=== PATIENT | female | born 1945 | race Caucasian/White ===

== ENCOUNTER 2017-12-26 06:04 | Inpatient (IN) | payer MEDICARE, MEDICAID ==
[2017-12-20 10:30] LABS: BASOPHILS % (AUTO) 0.5 % (0-1); EOSINOPHILS # (AUTO) 0.1 X10'3 (0-0.9); EOSINOPHILS % (AUTO) 2.2 % (0-6); LYMPHOCYTES # (AUTO) 1.2 X10'3 (1.1-4.8); LYMPHOCYTES % (AUTO) 18.2 % (21-51); MEAN CORPUSCULAR HEMOGLOBIN 32.4 PG (27.0-31.0); MEAN CORPUSCULAR HGB CONC 34.7 % (33.0-36.5); MEAN CORPUSCULAR VOLUME 93.4 FL (78-98); MEAN PLATELET VOLUME 8.7 FL (7.4-10.4); MONOCYTES # (AUTO) 0.5 X10'3 (0-0.9); MONOCYTES % (AUTO) 7.2 % (2-12); NEUTROPHILS # (AUTO) 4.6 X10'3 (1.8-7.7); NEUTROPHILS % (AUTO) 71.9 % (42-75); PRE OP HEMATOCRIT 40.8 % (35.0-45.0); PRE OP HEMOGLOBIN 14.2 g/dL (12.0-16.0); PRE OP PLATELET COUNT 161 X10'3 (140-440); RED BLOOD COUNT 4.37 X10'6 (4.20-5.60)
[2017-12-20 10:45] LABS: ALBUMIN 3.5 G/DL (3.4-5.0); ALKALINE PHOSPHATASE 88 IU/L (46-116); BLOOD UREA NITROGEN 17 MG/DL (7-18); BUN/CREATININE RATIO 18.7 (6.6-38.0); CALCIUM 9.4 MG/DL (8.5-10.1); CHLORIDE 104 MMOL/L (99-107); CREATININE 0.91 MG/DL (0.40-0.90); PRE OP ALT 33 U/L (30-65); PRE OP ANION GAP 6 (8-16); PRE OP AST 23 U/L (10-37); PRE OP BILIRUB, TOTAL 0.3 MG/DL (0.0-1.0); PRE OP GLUCOSE 107 MG/DL (70-104); PRE OP POTASSIUM 3.7 MMOL/L (3.4-5.1); PRE OP SODIUM 141 MMOL/L (135-145); TOTAL CARBON DIOXIDE 31.1 MMOL/L (24-32); eGFR 60 ML/MIN
[2017-12-26] VITALS (27 sets, daily range): BP systolic 76–113; BP diastolic 31–63
[~2017-12-26] VITALS: Ht 162.6 cm; Wt 74.0 kg
[~2017-12-26 06:04] MED LIST: ATOR40TA PO; DULO-31 PO; HYDR25TA4 PO; HYDR50CA PO; LOSA100T15 PO; OMEP-84 PO; SUMA50TA17 PO; TRAZ-218 PO; VANCOMYCIN INJ 1000 MG in NORMAL SALINE 250ml IV.SOLN IV ONE; ZOLP10TA5 PO; cefazolin/dext.iso 2gm/100 ML IV ONE; famotidine 20mg tablet PO ONE; ringers solution, lacted 1,000 ML IV SCH; tranexamic acid inj. 700 MG in normal saline 100ml IV soln 93 ML IV ONE
[2017-12-26] MEDS ORDERED: tranexamic acid inj. 700 MG in normal saline 100ml IV soln 93 ML IV ONE (06:30)
[2017-12-26] MEDS ORDERED: LIDOcaine 1% (10mg/ml) 2ml vial ONE (06:45)
[2017-12-26] MEDS ORDERED: ketorolac trometh. 30mg/ml inj. ONE (07:43)
[2017-12-26] MEDS ORDERED: vancomycin 1,000mg inj ONE (07:43)
[2017-12-26] MEDS ORDERED: ROPIVAcaine 0.5% (5mg/ml) 30ml vial ONE ×2 (07:44→11:27)
[2017-12-26] MEDS ORDERED: MIDAZolam 1mg/ml 10ml vial ONE (08:57)
[2017-12-26] MEDS ORDERED: morphine /PF 1mg/ml 10ml inj. ONE (08:58)
[2017-12-26] MEDS ORDERED: fentaNYL/PF 50MCG/1 ML 2ML syringe ONE (08:58)
[2017-12-26] MEDS ORDERED: ePHEDrine 50MG/ML INJ. ONE (09:37)
[2017-12-26] MEDS ORDERED: ringers solution, lacted 1,000 ML IV SCH (11:09)
[2017-12-26] MEDS ORDERED: naloxone 2mg/2ml inj 1.5 MG in normal saline 500ml IV soln 500 ML IV PRN (11:10)
[2017-12-26] MEDS ORDERED: proCHLORperazine 10 MG/2 ml inj IV PRN (11:10)
[2017-12-26] MEDS ORDERED: meperidine/PF 25mg/ml syringe IV PRN ×3 (11:10)
[2017-12-26] MEDS ORDERED: morphine 4 MG/ML inj SYRINge IV PRN ×2 (11:10)
[2017-12-26] MEDS ORDERED: diphenhydrAMINE 50 mg/ml inj IV PRN (11:10)
[2017-12-26] MEDS ORDERED: ondansetron/PF 4mg/2ml inj IV PRN (11:10)
[2017-12-26] MEDS ORDERED: SUMAtriptan 25 MG tablet PO PRN (11:50)
[2017-12-26] MEDS ORDERED: magnesium hydroxide 30ml (MOM) UD suspension PO PRN (11:50)
[2017-12-26] MEDS ORDERED: diphenhydrAMINE 25mg capsule PO PRN ×2 (11:50)
[2017-12-26] MEDS ORDERED: HYDROmorphone 1 mg/ml syringe IV PRN ×2 (11:50)
[2017-12-26] MEDS ORDERED: acetaminophen 325mg tablet PO PRN (11:50)
[2017-12-26] MEDS ORDERED: bisacodyl 10mg suppository rectal RC PRN (11:50)
[2017-12-26] MEDS: ondansetron/PF 4mg/2ml inj IV PRN (15:49)
[2017-12-26] MEDS ORDERED: tranexamic acid inj. 700 MG in normal saline 100ml IV soln 100 ML IV ONE (16:00)
[2017-12-26] MEDS: acetaminophen 325mg tablet PO SCH ×2 (17:17→20:46)
[2017-12-26] MEDS: gabapentin 300mg capsule PO SCH ×2 (17:18→20:46)
[2017-12-26] MEDS: hydrOXYzine 25 MG tablet PO SCH ×2 (17:18→20:44)
[2017-12-26] MEDS: ketorolac tromethamine 15mg/ml inj. IV SCH ×2 (17:28→20:45)
[2017-12-26] MEDS: potassium cl 20mEq in 1/2 NS 1,000 ML IV SCH ×2 (18:50→21:13)
[2017-12-26] MEDS: ceFAZolin 1GM/D5W- ADD-VANTAGE 50 ML IV SCH (18:50)
[2017-12-26] MEDS ORDERED: vancomycin/NS 1 GM ADD-VANTAGE 250 ML IV SCH (20:00)
[2017-12-26] MEDS: sennosides 8.6mg tablet PO SCH (20:45)
[2017-12-26] MEDS: traZODone 50mg tablet PO SCH (20:46)
[2017-12-26] MEDS: atorvastatin 20mg tablet PO SCH (20:46)
[2017-12-26] MEDS: zolpidem 5mg tablet PO PRN (20:52)
[2017-12-27] MEDS: ketorolac tromethamine 15mg/ml inj. IV SCH ×2 (01:34→08:14)
[2017-12-27] MEDS: ceFAZolin 1GM/D5W- ADD-VANTAGE 50 ML IV SCH (01:34)
[2017-12-27] MEDS: acetaminophen 325mg tablet PO SCH ×4 (01:34→20:27)
[2017-12-27 05:00] VITALS: BP 97/49
[2017-12-27] MEDS: oxyCODONE IR 5mg (immed. release) tablet PO PRN ×2 (05:17→19:16)
[2017-12-27 06:23] LABS: BASOPHILS % (AUTO) 0.4 % (0-1); EOSINOPHILS % (AUTO) 0 % (0-6); HEMATOCRIT 33.2 % (35.0-45.0); LYMPHOCYTES # (AUTO) 0.7 X10'3 (1.1-4.8); LYMPHOCYTES % (AUTO) 6.9 % (21-51); MEAN CORPUSCULAR HEMOGLOBIN 31.4 PG (27.0-31.0); MEAN CORPUSCULAR HGB CONC 33.1 % (33.0-36.5); MEAN CORPUSCULAR VOLUME 94.9 FL (78-98); MEAN PLATELET VOLUME 9.5 FL (7.4-10.4); MONOCYTES # (AUTO) 0.7 X10'3 (0-0.9); MONOCYTES % (AUTO) 6.7 % (2-12); NEUTROPHILS # (AUTO) 9.2 X10'3 (1.8-7.7); PLATELET COUNT 120 X10'3 (140-440); RED CELL DISTRIBUTION WIDTH 14.6 % (11.5-14.5); WHITE BLOOD COUNT 10.7 X10'3 (4.5-11.0)
[2017-12-27 06:29] LABS: ANION GAP 8 (8-16); CHLORIDE 106 MMOL/L (99-107); POTASSIUM 4.3 MMOL/L (3.5-5.1); SODIUM 141 MMOL/L (135-145); TOTAL CARBON DIOXIDE 26.7 MMOL/L (24-32)
[2017-12-27] MEDS ORDERED: scopolamine 1.5mg patch.TD72 TD ONE (06:40)
[2017-12-27] MEDS: hydrOXYzine 25 MG tablet PO SCH ×4 (08:00→20:22)
[2017-12-27] MEDS: losartan 50mg tablet PO SCH (08:00)
[2017-12-27] MEDS: HYDROchlorothiazide 25mg tablet PO SCH (08:00)
[2017-12-27] MEDS: potassium cl 20mEq in 1/2 NS 1,000 ML IV SCH ×3 (08:04→16:23)
[2017-12-27] MEDS: duloxetine 30mg CAPSULE.DR PO SCH (08:09)
[2017-12-27] MEDS: gabapentin 300mg capsule PO SCH ×3 (08:10→20:27)
[2017-12-27] MEDS: pantoprazole 40mg Tablet.DR PO SCH (08:10)
[2017-12-27] MEDS: aspirin 325mg tablet PO SCH (08:13)
[2017-12-27 08:28] VITALS: BP 87/44
[2017-12-27 10:00] VITALS: BP 82/42
[2017-12-27] MEDS: ondansetron/PF 4mg/2ml inj IV PRN ×2 (11:11→19:15)
[2017-12-27 14:00] VITALS: BP 88/34
[2017-12-27 18:00] VITALS: BP 99/42
[2017-12-27] MEDS: celeCOXIB 100mg capsule PO SCH (20:26)
[2017-12-27] MEDS: atorvastatin 20mg tablet PO SCH (20:27)
[2017-12-27] MEDS: sennosides 8.6mg tablet PO SCH (20:28)
[2017-12-27] MEDS: traZODone 50mg tablet PO SCH (20:28)
[2017-12-27] MEDS: zolpidem 5mg tablet PO PRN (20:31)
[2017-12-27 22:00] VITALS: BP 104/44
[2017-12-28] MEDS: acetaminophen 325mg tablet PO SCH ×2 (02:00→08:17)
[2017-12-28] MEDS: potassium cl 20mEq in 1/2 NS 1,000 ML IV SCH (03:46)
[2017-12-28] MEDS: oxyCODONE IR 5mg (immed. release) tablet PO PRN ×4 (04:04→21:30)
[2017-12-28] MEDS ORDERED: WALKERFR (05:56)
[2017-12-28] MEDS ORDERED: ASPI-1 PO (05:56)
[2017-12-28 06:00] VITALS: BP 92/44
[2017-12-28] MEDS: hydrOXYzine 25 MG tablet PO SCH ×4 (08:00→20:54)
[2017-12-28 08:06] LABS: HEMATOCRIT 29.4 % (35.0-45.0); HEMOGLOBIN 10.3 g/dl (12.0-16.0); MEAN CORPUSCULAR HEMOGLOBIN 33.4 PG (27.0-31.0); MEAN CORPUSCULAR HGB CONC 35.1 % (33.0-36.5); MEAN CORPUSCULAR VOLUME 95.2 FL (78-98); PLATELET COUNT 102 X10'3 (140-440); RED BLOOD COUNT 3.09 X10'6 (4.20-5.60); RED CELL DISTRIBUTION WIDTH 13.2 % (11.5-14.5); WHITE BLOOD COUNT 7.2 X10'3 (4.5-11.0)
[2017-12-28 08:07] LABS: BASOPHILS % (AUTO) 0.5 % (0-1); EOSINOPHILS # (AUTO) 0.2 X10'3 (0-0.9); EOSINOPHILS % (AUTO) 2.2 % (0-6); LYMPHOCYTES # (AUTO) 1.6 X10'3 (1.1-4.8); LYMPHOCYTES % (AUTO) 21.7 % (21-51); MONOCYTES # (AUTO) 0.7 X10'3 (0-0.9); MONOCYTES % (AUTO) 9.4 % (2-12); NEUTROPHILS # (AUTO) 4.7 X10'3 (1.8-7.7); NEUTROPHILS % (AUTO) 66.2 % (42-75)
[2017-12-28] MEDS: celeCOXIB 100mg capsule PO SCH ×2 (08:13→20:49)
[2017-12-28] MEDS: losartan 50mg tablet PO SCH (08:14)
[2017-12-28] MEDS: duloxetine 30mg CAPSULE.DR PO SCH (08:14)
[2017-12-28] MEDS: HYDROchlorothiazide 25mg tablet PO SCH (08:15)
[2017-12-28] MEDS: gabapentin 300mg capsule PO SCH ×3 (08:15→20:49)
[2017-12-28] MEDS: pantoprazole 40mg Tablet.DR PO SCH (08:15)
[2017-12-28] MEDS: aspirin 325mg tablet PO SCH (08:17)
[2017-12-28 08:42] VITALS: BP 114/52
[2017-12-28] MEDS ORDERED: normal saline 500ml IV soln 1,000 ML IV ONE (09:25)
[2017-12-28 10:00] VITALS: BP 88/41
[2017-12-28 11:21] VITALS: BP 95/36
[2017-12-28 18:00] VITALS: BP 93/45
[2017-12-28] MEDS: atorvastatin 20mg tablet PO SCH (20:49)
[2017-12-28] MEDS: sennosides 8.6mg tablet PO SCH (20:49)
[2017-12-28] MEDS: traZODone 50mg tablet PO SCH (20:49)
[2017-12-28 22:00] VITALS: BP 98/45
[2017-12-29] MEDS: oxyCODONE IR 5mg (immed. release) tablet PO PRN ×3 (01:39→17:54)
[2017-12-29 06:00] VITALS: BP 117/52
[2017-12-29] MEDS: ondansetron/PF 4mg/2ml inj IV PRN (07:19)
[2017-12-29 07:27] LABS: BASOPHILS # (AUTO) 0.1 X10'3 (0-0.2); BASOPHILS % (AUTO) 0.8 % (0-1); EOSINOPHILS # (AUTO) 0.2 X10'3 (0-0.9); EOSINOPHILS % (AUTO) 2.1 % (0-6); HEMATOCRIT 30.8 % (35.0-45.0); HEMOGLOBIN 10.6 g/dl (12.0-16.0); LYMPHOCYTES # (AUTO) 1.8 X10'3 (1.1-4.8); LYMPHOCYTES % (AUTO) 24.3 % (21-51); MEAN CORPUSCULAR HEMOGLOBIN 32.5 PG (27.0-31.0); MEAN CORPUSCULAR HGB CONC 34.6 % (33.0-36.5); MEAN CORPUSCULAR VOLUME 93.9 FL (78-98); MEAN PLATELET VOLUME 9.9 FL (7.4-10.4); MONOCYTES # (AUTO) 0.7 X10'3 (0-0.9); MONOCYTES % (AUTO) 9.8 % (2-12); NEUTROPHILS # (AUTO) 4.6 X10'3 (1.8-7.7); PLATELET COUNT 124 X10'3 (140-440); RED BLOOD COUNT 3.28 X10'6 (4.20-5.60); RED CELL DISTRIBUTION WIDTH 13.3 % (11.5-14.5); WHITE BLOOD COUNT 7.4 X10'3 (4.5-11.0)
[2017-12-29] MEDS: celeCOXIB 100mg capsule PO SCH ×2 (07:42→20:02)
[2017-12-29] MEDS: duloxetine 30mg CAPSULE.DR PO SCH (07:42)
[2017-12-29] MEDS: aspirin 325mg tablet PO SCH (07:43)
[2017-12-29] MEDS: pantoprazole 40mg Tablet.DR PO SCH (07:43)
[2017-12-29] MEDS: gabapentin 300mg capsule PO SCH ×3 (07:43→20:02)
[2017-12-29] MEDS: hydrOXYzine 25 MG tablet PO SCH ×4 (07:51→20:03)
[2017-12-29] MEDS: losartan 50mg tablet PO SCH (07:52)
[2017-12-29] MEDS: HYDROchlorothiazide 25mg tablet PO SCH (07:52)
[2017-12-29 10:00] VITALS: BP 116/47
[2017-12-29] MEDS ORDERED: scopolamine 1.5mg patch.TD72 TD ONE (11:35)
[2017-12-29] MEDS: acetaminophen 325mg tablet PO PRN ×2 (12:03→23:26)
[2017-12-29 18:00] VITALS: BP 104/54
[2017-12-29] MEDS: traZODone 50mg tablet PO SCH (20:02)
[2017-12-29] MEDS: sennosides 8.6mg tablet PO SCH (20:02)
[2017-12-29] MEDS: atorvastatin 20mg tablet PO SCH (20:02)
[2017-12-29 22:00] VITALS: BP 105/59
[2017-12-30] MEDS: acetaminophen 325mg tablet PO PRN (05:30)
[2017-12-30 07:02] VITALS: BP 100/45
[2017-12-30] MEDS: gabapentin 300mg capsule PO SCH ×2 (07:54→15:02)
[2017-12-30] MEDS: duloxetine 30mg CAPSULE.DR PO SCH (07:54)
[2017-12-30] MEDS: pantoprazole 40mg Tablet.DR PO SCH (07:54)
[2017-12-30] MEDS: hydrOXYzine 25 MG tablet PO SCH ×3 (07:54→16:43)
[2017-12-30] MEDS: aspirin 325mg tablet PO SCH (07:54)
[2017-12-30] MEDS: celeCOXIB 100mg capsule PO SCH (07:54)
[2017-12-30] MEDS: HYDROchlorothiazide 25mg tablet PO SCH (08:00)
[2017-12-30] MEDS: losartan 50mg tablet PO SCH (08:00)
[2017-12-30 10:00] VITALS: BP 118/55
[2017-12-30] MEDS: oxyCODONE IR 5mg (immed. release) tablet PO PRN (11:25)
[2017-12-30 18:00] VITALS: BP 115/55
[2018-01-03] MEDS ORDERED: lactose-reduced food (Ensure High Protein) 237ml bottle PO SCH (12:12)
== END 2017-12-30 19:20 | disposition home health service (06) | DRG 470 ==
LOC: PAS IN 06:04 → EDSTATUS 07:30 → ORTHO 4S 14:35
PROVIDERS: ADMIT Orthopaedic Surgery; ATTEND Orthopaedic Surgery
PROC: 3E0T3BZ Introduction of Anesthetic Agent into Peripheral Nerves and Plexi, Percutaneous Approach (ICD-10-PCS; 2017-12-26)
PROC: 8E0YXBZ Computer Assisted Procedure of Lower Extremity (ICD-10-PCS; 2017-12-26)
PROC: 8E0Y0CZ Robotic Assisted Procedure of Lower Extremity, Open Approach (ICD-10-PCS; 2017-12-26)
PROC: 0SRD0J9 Replacement of Left Knee Joint with Synthetic Substitute, Cemented, Open Approach (ICD-10-PCS; principal; 2017-12-26 09:12)
DX: M17.12 Unilateral primary osteoarthritis, left knee (principal); D62 Acute posthemorrhagic anemia; K21.9 Gastro-esophageal reflux disease without esophagitis; E78.5 Hyperlipidemia, unspecified; F41.9 Anxiety disorder, unspecified; I10 Essential (primary) hypertension; F32.9 Major depressive disorder, single episode, unspecified; G43.909 Migraine, unspecified, not intractable, without status migrainosus; I95.9 Hypotension, unspecified; E66.9 Obesity, unspecified; M25.762 Osteophyte, left knee; M21.162 Varus deformity, not elsewhere classified, left knee; Z96.651 Presence of right artificial knee joint; Z96.1 Presence of intraocular lens; R11.0 Nausea; R42 Dizziness and giddiness; G89.29 Other chronic pain; E11.9 Type 2 diabetes mellitus without complications; Z91.040 Latex allergy status; Z91.048 Other nonmedicinal substance allergy status; Z91.041 Radiographic dye allergy status; Z79.899 Other long term (current) drug therapy; Z79.82 Long term (current) use of aspirin; Z68.28 Body mass index [BMI] 28.0-28.9, adult
CPT/HCPCS: 36415; 80051; 80053; 85025; 87070; 93005; 97110; 97116; 97162; 97530; 97535; A6455; A7000; C1713; C1758; C1776; J0690; J1885; J2250; J2274; J2405; J2795; J3010; J3370; J3490; J7030; J7120; Q0177

== ENCOUNTER 2018-01-05 11:10 | Inpatient (IN) | payer MEDICARE, MEDICAID ==
[~2018-01-05] VITALS: Ht 162.6 cm; Wt 72.0 kg
[~2018-01-05 11:10] MED LIST changes: +ASPI-1 PO; -VANCOMYCIN INJ 1000 MG in NORMAL SALINE 250ml IV.SOLN IV ONE; +WALKERFR; -cefazolin/dext.iso 2gm/100 ML IV ONE; -famotidine 20mg tablet PO ONE; -ringers solution, lacted 1,000 ML IV SCH; -tranexamic acid inj. 700 MG in normal saline 100ml IV soln 93 ML IV ONE
[2018-01-05] MEDS ORDERED: normal saline 1000ML IV soln IVB ONE (11:50)
[2018-01-05] MEDS ORDERED: ondansetron/PF 4mg/2ml inj IV ONE (11:50)
[2018-01-05 12:38] LABS: EOSINOPHILS % (AUTO) 0.1 % (0-6); HEMOGLOBIN 10.9 g/dl (12.0-16.0); LYMPHOCYTES # (AUTO) 0.5 X10'3 (1.1-4.8); MONOCYTES # (AUTO) 0.5 X10'3 (0-0.9); NEUTROPHILS # (AUTO) 9.6 X10'3 (1.8-7.7); RED BLOOD COUNT 3.37 X10'6 (4.20-5.60)
[2018-01-05 12:50] LABS: BASOPHILS # (AUTO) 0.2 X10'3 (0-0.2); BASOPHILS % (AUTO) 1.7 % (0-1); HEMATOCRIT 31.8 % (35.0-45.0); LYMPHOCYTES % (AUTO) 4.7 % (21-51); MEAN CORPUSCULAR HEMOGLOBIN 32.2 PG (27.0-31.0); MEAN CORPUSCULAR HGB CONC 34.2 % (33.0-36.5); MEAN CORPUSCULAR VOLUME 94.4 FL (78-98); MONOCYTES % (AUTO) 4.7 % (2-12); NEUTROPHILS % (AUTO) 88.8 % (42-75); PLATELET COUNT 208 X10'3 (140-440); RED CELL DISTRIBUTION WIDTH 13.1 % (11.5-14.5); WHITE BLOOD COUNT 10.8 X10'3 (4.5-11.0)
[2018-01-05 12:55] LABS: ALANINE AMINOTRANSFERASE 25 U/L (12-78); ALBUMIN 2.5 G/DL (3.4-5.0); ALBUMIN/GLOBULIN RATIO 0.8 (1.1-1.5); ALKALINE PHOSPHATASE 70 IU/L (46-116); ANION GAP 10 (8-16); ASPARTATE AMINO TRANSFERASE 26 U/L (10-37); BILIRUBIN,TOTAL 0.6 MG/DL (0.1-1.0); BLOOD UREA NITROGEN 11 MG/DL (7-18); BUN/CREATININE RATIO 11.1 (6.6-38.0); C-REACTIVE PROTEIN 2.08 MG/DL (0.0-0.5); CHLORIDE 106 MMOL/L (99-107); CREATININE 0.99 MG/DL (0.40-0.90); GLUCOSE 104 MG/DL (70-104); MAGNESIUM 1.8 MG/DL (1.5-2.4); POTASSIUM 3.5 MMOL/L (3.5-5.1); SODIUM 141 MMOL/L (135-145); TOTAL CARBON DIOXIDE 24.8 MMOL/L (24-32); TOTAL PROTEIN 5.8 G/DL (6.4-8.2); eGFR 55 ML/MIN
[2018-01-05 12:59] LABS: PARTIAL THROMBOPLASTIN TIME 25 SECONDS (22-32); PROTHROMBIN TIME 10.7 SECONDS (9.0-12.0)
[2018-01-05 13:22] LABS: CLARITY,URINE CLEAR (Clear); GLUCOSE, URINE NEGATIVE (Neg); KETONES,URINE >=80 mg/dl (Neg); LEUKOCYTE ESTERASE ,URINE NEGATIVE (Neg); NITRITES, URINE NEGATIVE (Neg); OCCULT BLOOD,URINE NEGATIVE (Neg); PROTEIN,URINE TRACE mg/dl (Neg)
[2018-01-05 13:29] LABS: COLOR,URINE DARK YELLOW (Yellow); UA COLLECTION TYPE FOLEY CATH
[2018-01-05 13:34] LABS: BACTERIA,URINE NONE SEEN /HPF (Neg); MUCUS STRANDS MANY /LPF (Neg); RBC,URINE NONE SEEN /HPF (0-2); SQUAMOUS EPITHELIAL CELL,UR FEW /LPF (FEW); WBC,URINE 0-4 /HPF (0-4)
[2018-01-05] MEDS ORDERED: ondansetron/PF 4mg/2ml inj IV PRN (17:45)
[2018-01-05] MEDS ORDERED: acetaminophen 325mg tablet PO PRN (17:45)
[2018-01-05] MEDS ORDERED: magnesium hydroxide 30ml (MOM) UD suspension PO PRN (17:45)
[2018-01-05] MEDS: dextrose 5%-1/2 normal saline 1,000 ML IV SCH (18:37)
[2018-01-05] MEDS ORDERED: SUMATRIPTAN SUCCINATE 50 MG PO PRN (19:05)
[2018-01-05] MEDS ORDERED: ZOLPIDEM TARTRATE 5 MG PO PRN (19:05)
[2018-01-05] MEDS ORDERED: HYDROXYZINE PAMOATE 50 MG PO PRN (19:05)
[2018-01-05 19:20] VITALS: BP 132/65
[2018-01-05] MEDS ORDERED: SUMAtriptan 25 MG tablet PO PRN (19:25)
[2018-01-05] MEDS ORDERED: hydrOXYzine 25 MG tablet PO PRN (19:25)
[2018-01-05] MEDS: mag hydrox/Alum hydrox/simeth 30ml oral suspension PO PRN (20:34)
[2018-01-05] MEDS ORDERED: non-formulary drug (Atorvastatin Calcium* (Lipitor*) 0.5 TABLET) PO SCH (21:00)
[2018-01-05] MEDS: atorvastatin 20mg tablet PO SCH (21:24)
[2018-01-05] MEDS: traZODone 50mg tablet PO SCH (21:24)
[2018-01-05] MEDS: zolpidem 5mg tablet PO PRN (21:26)
[2018-01-05 22:00] VITALS: BP 138/65
[2018-01-06] MEDS: mag hydrox/Alum hydrox/simeth 30ml oral suspension PO PRN (04:14)
[2018-01-06] MEDS: HYDROcodone/acetaminophen 5mg/325mg tablet PO PRN ×4 (04:15→17:23)
[2018-01-06 06:00] VITALS: BP 116/59
[2018-01-06 07:31] LABS: BASOPHILS % (AUTO) 0.6 % (0-1); EOSINOPHILS # (AUTO) 0.1 X10'3 (0-0.9); EOSINOPHILS % (AUTO) 1.8 % (0-6); HEMATOCRIT 27.9 % (35.0-45.0); HEMOGLOBIN 9.5 g/dl (12.0-16.0); LYMPHOCYTES # (AUTO) 1.1 X10'3 (1.1-4.8); LYMPHOCYTES % (AUTO) 13.6 % (21-51); MEAN CORPUSCULAR HEMOGLOBIN 32.3 PG (27.0-31.0); MEAN CORPUSCULAR HGB CONC 34.1 % (33.0-36.5); MEAN CORPUSCULAR VOLUME 94.6 FL (78-98); MEAN PLATELET VOLUME 7.7 FL (7.4-10.4); MONOCYTES # (AUTO) 0.6 X10'3 (0-0.9); MONOCYTES % (AUTO) 7.8 % (2-12); NEUTROPHILS % (AUTO) 76.2 % (42-75); PLATELET COUNT 199 X10'3 (140-440); RED BLOOD COUNT 2.95 X10'6 (4.20-5.60); RED CELL DISTRIBUTION WIDTH 13.3 % (11.5-14.5); WHITE BLOOD COUNT 7.8 X10'3 (4.5-11.0)
[2018-01-06 07:39] LABS: ALANINE AMINOTRANSFERASE 19 U/L (12-78); ALBUMIN/GLOBULIN RATIO 0.7 (1.1-1.5); ALKALINE PHOSPHATASE 61 IU/L (46-116); ANION GAP 7 (8-16); ASPARTATE AMINO TRANSFERASE 25 U/L (10-37); BILIRUBIN,TOTAL 0.4 MG/DL (0.1-1.0); BLOOD UREA NITROGEN 10 MG/DL (7-18); BUN/CREATININE RATIO 12.8 (6.6-38.0); CALCIUM 7.5 MG/DL (8.5-10.1); CHLORIDE 109 MMOL/L (99-107); CREATININE 0.78 MG/DL (0.40-0.90); GLUCOSE 105 MG/DL (70-104); POTASSIUM 3.4 MMOL/L (3.5-5.1); SODIUM 143 MMOL/L (135-145); TOTAL CARBON DIOXIDE 27.4 MMOL/L (24-32); TOTAL PROTEIN 4.9 G/DL (6.4-8.2); eGFR 72 ML/MIN
[2018-01-06] MEDS ORDERED: non-formulary drug (Omeprazole* (Prilosec*) 20 MG) PO SCH (08:00)
[2018-01-06] MEDS ORDERED: non-formulary drug (Losartan Potassium 1 TAB) PO SCH (08:00)
[2018-01-06] MEDS: pantoprazole 40mg Tablet.DR PO SCH (08:45)
[2018-01-06] MEDS: losartan 50mg tablet PO SCH (08:46)
[2018-01-06] MEDS: HYDROchlorothiazide 25mg tablet PO SCH (08:46)
[2018-01-06] MEDS: enoxaparin 40mg/0.4ml syringe SUBCUT SCH (08:47)
[2018-01-06 10:00] VITALS: BP 137/61
[2018-01-06] MEDS ORDERED: potassium Cl 20 mEq SR tablet PO PRN (10:35)
[2018-01-06] MEDS ORDERED: pneumococcal 23-VAL P-sac vacc 25 mcg/0.5ml vial IMVAC ONE (12:00)
[2018-01-06] MEDS: potassium Cl 20 mEq SR tablet PO PRN ×2 (13:27→20:13)
[2018-01-06] MEDS ORDERED: vancomycin 125mg/5ml ORAL solution 5ml UD bottle PO SCH ×2 (14:00)
[2018-01-06] MEDS: dextrose 5%-1/2 normal saline 1,000 ML IV SCH (14:47)
[2018-01-06 18:00] VITALS: BP 129/61
[2018-01-06] MEDS: zolpidem 5mg tablet PO PRN (20:12)
[2018-01-06] MEDS: traZODone 50mg tablet PO SCH (20:13)
[2018-01-06] MEDS: atorvastatin 20mg tablet PO SCH (20:13)
[2018-01-06 22:00] VITALS: BP 113/58
[2018-01-07] MEDS: HYDROcodone/acetaminophen 5mg/325mg tablet PO PRN ×3 (01:55→14:36)
[2018-01-07 06:36] LABS: BASOPHILS % (AUTO) 0 % (0-1); EOSINOPHILS # (AUTO) 0.1 X10'3 (0-0.9); EOSINOPHILS % (AUTO) 1.4 % (0-6); HEMATOCRIT 32.5 % (35.0-45.0); HEMOGLOBIN 10.8 g/dl (12.0-16.0); LYMPHOCYTES % (AUTO) 9.6 % (21-51); MEAN CORPUSCULAR HEMOGLOBIN 31.4 PG (27.0-31.0); MONOCYTES # (AUTO) 0.5 X10'3 (0-0.9); MONOCYTES % (AUTO) 5.2 % (2-12); NEUTROPHILS # (AUTO) 8.8 X10'3 (1.8-7.7); NEUTROPHILS % (AUTO) 83.8 % (42-75); PLATELET COUNT 240 X10'3 (140-440); RED BLOOD COUNT 3.42 X10'6 (4.20-5.60); RED CELL DISTRIBUTION WIDTH 14.2 % (11.5-14.5); WHITE BLOOD COUNT 10.6 X10'3 (4.5-11.0)
[2018-01-07] MEDS: pantoprazole 40mg Tablet.DR PO SCH (06:47)
[2018-01-07 06:54] LABS: ALANINE AMINOTRANSFERASE 19 U/L (12-78); ALBUMIN 2.2 G/DL (3.4-5.0); ALBUMIN/GLOBULIN RATIO 0.7 (1.1-1.5); ALKALINE PHOSPHATASE 68 IU/L (46-116); ANION GAP 5 (8-16); ASPARTATE AMINO TRANSFERASE 19 U/L (10-37); BILIRUBIN,TOTAL 0.5 MG/DL (0.1-1.0); BLOOD UREA NITROGEN 7 MG/DL (7-18); BUN/CREATININE RATIO 7.5 (6.6-38.0); CALCIUM 7.8 MG/DL (8.5-10.1); CHLORIDE 106 MMOL/L (99-107); CREATININE 0.93 MG/DL (0.40-0.90); GLUCOSE 119 MG/DL (70-104); POTASSIUM 3.5 MMOL/L (3.5-5.1); SODIUM 141 MMOL/L (135-145); TOTAL PROTEIN 5.4 G/DL (6.4-8.2); eGFR 59 ML/MIN
[2018-01-07 06:59] VITALS: BP 130/68
[2018-01-07] MEDS: losartan 50mg tablet PO SCH (07:29)
[2018-01-07] MEDS: HYDROchlorothiazide 25mg tablet PO SCH (07:29)
[2018-01-07] MEDS: enoxaparin 40mg/0.4ml syringe SUBCUT SCH (07:29)
[2018-01-07] MEDS: dextrose 5%-1/2 normal saline 1,000 ML IV SCH ×2 (12:04→18:37)
[2018-01-07 18:00] VITALS: BP 112/59
[2018-01-07] MEDS: atorvastatin 20mg tablet PO SCH (20:33)
[2018-01-07] MEDS: mag hydrox/Alum hydrox/simeth 30ml oral suspension PO PRN (20:33)
[2018-01-07] MEDS: zolpidem 5mg tablet PO PRN (20:33)
[2018-01-07] MEDS: traZODone 50mg tablet PO SCH (20:33)
[2018-01-07 22:00] VITALS: BP 128/54
[2018-01-08] MEDS: HYDROcodone/acetaminophen 5mg/325mg tablet PO PRN (01:48)
[2018-01-08 05:26] LABS: BASOPHILS % (AUTO) 0 % (0-1); EOSINOPHILS # (AUTO) 0.1 X10'3 (0-0.9); EOSINOPHILS % (AUTO) 1.1 % (0-6); HEMATOCRIT 32.4 % (35.0-45.0); HEMOGLOBIN 10.9 g/dl (12.0-16.0); LYMPHOCYTES # (AUTO) 0.9 X10'3 (1.1-4.8); LYMPHOCYTES % (AUTO) 7.1 % (21-51); MEAN CORPUSCULAR HEMOGLOBIN 31.6 PG (27.0-31.0); MEAN CORPUSCULAR HGB CONC 33.6 % (33.0-36.5); MEAN PLATELET VOLUME 7.6 FL (7.4-10.4); MONOCYTES # (AUTO) 0.7 X10'3 (0-0.9); MONOCYTES % (AUTO) 5.6 % (2-12); NEUTROPHILS # (AUTO) 10.7 X10'3 (1.8-7.7); NEUTROPHILS % (AUTO) 86.2 % (42-75); PLATELET COUNT 285 X10'3 (140-440); RED BLOOD COUNT 3.45 X10'6 (4.20-5.60); RED CELL DISTRIBUTION WIDTH 14.1 % (11.5-14.5); WHITE BLOOD COUNT 12.4 X10'3 (4.5-11.0)
[2018-01-08 05:46] LABS: ALANINE AMINOTRANSFERASE 15 U/L (12-78); ALBUMIN 2.3 G/DL (3.4-5.0); ALBUMIN/GLOBULIN RATIO 0.7 (1.1-1.5); ALKALINE PHOSPHATASE 77 IU/L (46-116); ANION GAP 3 (8-16); ASPARTATE AMINO TRANSFERASE 15 U/L (10-37); BILIRUBIN,TOTAL 0.6 MG/DL (0.1-1.0); BLOOD UREA NITROGEN 5 MG/DL (7-18); BUN/CREATININE RATIO 5.3 (6.6-38.0); CALCIUM 8.3 MG/DL (8.5-10.1); CHLORIDE 104 MMOL/L (99-107); CREATININE 0.95 MG/DL (0.40-0.90); GLUCOSE 110 MG/DL (70-104); POTASSIUM 3.4 MMOL/L (3.5-5.1); SODIUM 139 MMOL/L (135-145); TOTAL CARBON DIOXIDE 31.7 MMOL/L (24-32); TOTAL PROTEIN 5.8 G/DL (6.4-8.2); eGFR 58 ML/MIN
[2018-01-08 06:00] VITALS: BP 120/55
[2018-01-08] MEDS: pantoprazole 40mg Tablet.DR PO SCH (07:42)
[2018-01-08] MEDS: losartan 50mg tablet PO SCH (07:43)
[2018-01-08] MEDS: HYDROchlorothiazide 25mg tablet PO SCH (07:43)
[2018-01-08] MEDS: enoxaparin 40mg/0.4ml syringe SUBCUT SCH (07:44)
[2018-01-08 10:00] VITALS: BP 123/55
[2018-01-08 17:18] VITALS: BP 130/50
== END 2018-01-08 17:45 | DRG 391 ==
LOC: ER 11:11 → ED HOLD 17:42 → ORTHO 4S 19:20
PROVIDERS: ADMIT Internal Medicine; ATTEND Internal Medicine
PROC: 3E02340 Introduction of Influenza Vaccine into Muscle, Percutaneous Approach (ICD-10-PCS; principal; 2018-01-06)
PROC: 3E0234Z Introduction of Serum, Toxoid and Vaccine into Muscle, Percutaneous Approach (ICD-10-PCS; 2018-01-06)
DX: R19.7 Diarrhea, unspecified (principal); E43 Unspecified severe protein-calorie malnutrition; D62 Acute posthemorrhagic anemia; E11.9 Type 2 diabetes mellitus without complications; G89.18 Other acute postprocedural pain; M25.562 Pain in left knee; E78.00 Pure hypercholesterolemia, unspecified; E78.5 Hyperlipidemia, unspecified; I10 Essential (primary) hypertension; K21.9 Gastro-esophageal reflux disease without esophagitis; K59.00 Constipation, unspecified; Z23 Encounter for immunization; Z91.040 Latex allergy status; Z91.048 Other nonmedicinal substance allergy status; Z79.899 Other long term (current) drug therapy; Z86.73 Personal history of transient ischemic attack (TIA), and cerebral infarction without residual deficits; Z68.27 Body mass index [BMI] 27.0-27.9, adult
CPT/HCPCS: 36415; 71045; 73560; 80053; 81001; 82948; 83036; 83605; 83735; 84145; 85025; 85610; 85651; 85730; 86140; 87040; 87070; 90732; 93005; 93971; 96361; 96374; 97110; 97116; 97162; 97530; 99285; J1650; J2405

== ENCOUNTER 2018-05-06 05:18 | Emergency (ER) | payer MEDICARE, MEDICAID ==
[~2018-05-06] VITALS: Ht 162.6 cm; Wt 74.0 kg
[~2018-05-06 05:18] MED LIST changes: -ASPI-1 PO; -LOSA100T15 PO; +LOSA100T57 PO
[2018-05-06] MEDS ORDERED: acetaminophen 325mg tablet PO ONE (05:45)
[2018-05-06 06:31] VITALS: BP 152/67
[2018-05-06 07:10] LABS: BASOPHILS % (AUTO) 0.2 % (0-1); EOSINOPHILS # (AUTO) 0.2 X10'3 (0-0.9); EOSINOPHILS % (AUTO) 2.6 % (0-6); HEMATOCRIT 37.1 % (35.0-45.0); HEMOGLOBIN 12.5 g/dl (12.0-16.0); LYMPHOCYTES # (AUTO) 1.2 X10'3 (1.1-4.8); LYMPHOCYTES % (AUTO) 16.1 % (21-51); MEAN CORPUSCULAR HEMOGLOBIN 30.9 PG (27.0-31.0); MEAN CORPUSCULAR HGB CONC 33.8 g/dL (33.0-36.5); MEAN CORPUSCULAR VOLUME 91.5 FL (78-98); MEAN PLATELET VOLUME 7.8 FL (7.4-10.4); MONOCYTES # (AUTO) 0.5 X10'3 (0-0.9); MONOCYTES % (AUTO) 7.2 % (2-12); NEUTROPHILS # (AUTO) 5.6 X10'3 (1.8-7.7); NEUTROPHILS % (AUTO) 73.9 % (42-75); PLATELET COUNT 160 X10'3 (140-440); RED BLOOD COUNT 4.05 X10'6 (4.20-5.60); RED CELL DISTRIBUTION WIDTH 14.9 % (11.5-14.5); WHITE BLOOD COUNT 7.6 X10'3 (4.5-11.0)
[2018-05-06 07:25] LABS: ALANINE AMINOTRANSFERASE 20 U/L (12-78); ALBUMIN 3.1 G/DL (3.4-5.0); ALBUMIN/GLOBULIN RATIO 0.9 (1.1-1.5); ALKALINE PHOSPHATASE 87 IU/L (46-116); ANION GAP 11 (8-16); ASPARTATE AMINO TRANSFERASE 15 U/L (10-37); BILIRUBIN,TOTAL 0.4 MG/DL (0.1-1.0); BLOOD UREA NITROGEN 18 MG/DL (7-18); BUN/CREATININE RATIO 17.6 (6.6-38.0); CALCIUM 8.7 MG/DL (8.5-10.1); CHLORIDE 104 MMOL/L (99-107); CREATININE 1.02 MG/DL (0.40-0.90); GLUCOSE 120 MG/DL (70-104); POTASSIUM 3.8 MMOL/L (3.5-5.1); SODIUM 143 MMOL/L (135-145); TOTAL PROTEIN 6.4 G/DL (6.4-8.2); eGFR 53 ML/MIN
[2018-05-06 07:31] LABS: MAGNESIUM 1.6 MG/DL (1.5-2.4)
== END 2018-05-06 08:49 | disposition home or self-care (01) ==
LOC: ER 05:18
DX: S70.01XA Contusion of right hip, initial encounter (principal); I10 Essential (primary) hypertension; K21.9 Gastro-esophageal reflux disease without esophagitis; E11.9 Type 2 diabetes mellitus without complications; Z86.73 Personal history of transient ischemic attack (TIA), and cerebral infarction without residual deficits; Z90.89 Acquired absence of other organs; Z91.040 Latex allergy status; Z88.8 Allergy status to other drugs, medicaments and biological substances; Z79.899 Other long term (current) drug therapy; Z60.2 Problems related to living alone; W18.39XA Other fall on same level, initial encounter; Y93.89 Activity, other specified; Y92.89 Other specified places as the place of occurrence of the external cause; Y99.8 Other external cause status
CPT/HCPCS: 36415; 71045; 72170; 80053; 83735; 83880; 84484; 85025; 93005; 99284

== ENCOUNTER 2022-11-02 00:50 | Emergency (ER) | payer MEDICARE, MEDICAID ==
[~2022-11-02] VITALS: Ht 162.6 cm; Wt 91.0 kg
[~2022-11-02 00:50] MED LIST changes: -LOSA100T57 PO; +LOSA100T58 PO; -TRAZ-218 PO; +TRAZ-251 PO
[2022-11-02 01:18] LABS: BASOPHILS % (AUTO) 0.6 % (0-1); EOSINOPHILS # (AUTO) 0.3 X10'3 (0-0.9); EOSINOPHILS % (AUTO) 4.3 % (0-6); HEMATOCRIT 40.2 % (35.0-45.0); HEMOGLOBIN 13.6 g/dl (12.0-16.0); LYMPHOCYTES # (AUTO) 2.5 X10'3 (1.1-4.8); MEAN CORPUSCULAR HEMOGLOBIN 31.4 PG (27.0-31.0); MEAN CORPUSCULAR HGB CONC 33.9 g/dL (33.0-36.5); MEAN CORPUSCULAR VOLUME 92.6 FL (78-98); MEAN PLATELET VOLUME 7.6 FL (7.4-10.4); MONOCYTES # (AUTO) 0.7 X10'3 (0-0.9); MONOCYTES % (AUTO) 10.6 % (2-12); NEUTROPHILS # (AUTO) 3.5 X10'3 (1.8-7.7); NEUTROPHILS % (AUTO) 49.5 % (42-75); PLATELET COUNT 163 X10'3 (140-440); RED BLOOD COUNT 4.34 X10'6 (4.20-5.60); RED CELL DISTRIBUTION WIDTH 14.8 % (11.5-14.5)
[2022-11-02 01:30] VITALS: TEMP 97.9
[2022-11-02 01:32] LABS: ALANINE AMINOTRANSFERASE 27 U/L (12-78); ALBUMIN 3.3 G/DL (3.4-5.0); ALKALINE PHOSPHATASE 93 IU/L (46-116); ANION GAP 10 (8-16); ASPARTATE AMINO TRANSFERASE 23 U/L (10-37); BILIRUBIN,TOTAL 0.2 MG/DL (0.1-1.0); BLOOD UREA NITROGEN 15 MG/DL (7-18); CALCIUM 8.9 MG/DL (8.5-10.1); CHLORIDE 106 MMOL/L (99-107); GLUCOSE 104 MG/DL (70-104); POTASSIUM 4.1 MMOL/L (3.5-5.1); SODIUM 142 MMOL/L (135-145); TOTAL CARBON DIOXIDE 26.2 MMOL/L (24-32); TOTAL PROTEIN 6.6 G/DL (6.4-8.2); eGFR 53 ML/MIN
[2022-11-02 01:40] LABS: LIPASE 69 U/L (73-393)
[2022-11-02 02:43] LABS: CLARITY,URINE SLIGHTLY CLOUDY (Clear); COLOR,URINE YELLOW (Yellow); GLUCOSE, URINE NEGATIVE (Neg); KETONES,URINE NEGATIVE (Neg); LEUKOCYTE ESTERASE ,URINE MODERATE (Neg); NITRITES, URINE NEGATIVE (Neg); OCCULT BLOOD,URINE NEGATIVE (Neg); PROTEIN,URINE NEGATIVE (Neg); UROBILINOGEN,URINE 0.2 E.U/dL (0.2-1.0)
[2022-11-02 02:46] LABS: UA COLLECTION TYPE CLN CATCH MIDSTREAM
[2022-11-02 02:53] LABS: BACTERIA,URINE 2+ /HPF (Neg); MUCUS STRANDS FEW /LPF (Neg); SQUAMOUS EPITHELIAL CELL,UR MODERATE /LPF (FEW); TRANSITIONAL EPI CELLS,URINE FEW /HPF; WBC,URINE 20-30 /HPF (0-4)
[2022-11-02 03:27] VITALS: BP 152/70; PULSE 67; RESP 14; O2SAT 94
[2022-11-02] MEDS ORDERED: POLY119P2 PO (03:44)
[2022-11-03 11:00] LABS: OCCULT BLOOD STOOL NEGATIVE (Neg)
== END 2022-11-02 04:58 | disposition home or self-care (01) ==
LOC: ER 00:51
DX: R19.5 Other fecal abnormalities (principal); I10 Essential (primary) hypertension; K21.9 Gastro-esophageal reflux disease without esophagitis; E11.9 Type 2 diabetes mellitus without complications; Z91.040 Latex allergy status; Z88.8 Allergy status to other drugs, medicaments and biological substances; Z79.899 Other long term (current) drug therapy; Z79.2 Long term (current) use of antibiotics
CPT/HCPCS: 36415; 71045; 80053; 81001; 82272; 83690; 83880; 84484; 85025; 86885; 86900; 86901; 87088; 93005; 99285

== ENCOUNTER 2023-02-22 14:32 | Observation (INO) | payer MEDICARE, MEDICAID ==
[~2023-02-22] VITALS: Ht 162.6 cm; Wt 87.5 kg
[~2023-02-22 14:32] MED LIST changes: +ALBU18HF2 INH; +APIX5TAB3 PO; +ATOR20TA66 PO; -ATOR40TA PO; +CIPR-429 PO; -DULO-31 PO; +EMPA10TA PO; +FURO20TA4 PO; -HYDR25TA4 PO; -HYDR50CA PO; +HYDR50TA65 PO; +LISI10TA27 PO; -LOSA100T58 PO; +METO5TAB7 PO; -OMEP-84 PO; +OMEP20CA16 PO; +POTA-366 PO; +SPIR25TA5 PO; -SUMA50TA17 PO; -TRAZ-251 PO; +TRAZ-256 PO; -WALKERFR; -ZOLP10TA5 PO
[2023-02-22] MEDS ORDERED: aspirin 81mg tab.chew PO ONE (14:55)
[2023-02-22 15:34] LABS: BASOPHILS % (AUTO) 0.7 % (0-1); EOSINOPHILS # (AUTO) 0.3 X10'3 (0-0.9); EOSINOPHILS % (AUTO) 5.8 % (0-6); HEMATOCRIT 38.9 % (35.0-45.0); LYMPHOCYTES # (AUTO) 1.4 X10'3 (1.1-4.8); LYMPHOCYTES % (AUTO) 23.6 % (21-51); MEAN CORPUSCULAR HEMOGLOBIN 31.2 PG (27.0-31.0); MEAN CORPUSCULAR HGB CONC 33.4 g/dL (33.0-36.5); MEAN CORPUSCULAR VOLUME 93.4 FL (78-98); MEAN PLATELET VOLUME 9.1 FL (7.4-10.4); MONOCYTES # (AUTO) 0.7 X10'3 (0-0.9); MONOCYTES % (AUTO) 10.8 % (2-12); NEUTROPHILS # (AUTO) 3.6 X10'3 (1.8-7.7); NEUTROPHILS % (AUTO) 59.1 % (42-75); PLATELET COUNT 190 X10'3 (140-440); RED BLOOD COUNT 4.16 X10'6 (4.20-5.60); RED CELL DISTRIBUTION WIDTH 14.8 % (11.5-14.5); WHITE BLOOD COUNT 6.1 X10'3 (4.5-11.0)
[2023-02-22 15:50] LABS: ALANINE AMINOTRANSFERASE 17 U/L (12-78); ALBUMIN 3.4 G/DL (3.4-5.0); ALKALINE PHOSPHATASE 67 IU/L (46-116); ANION GAP 8 (8-16); ASPARTATE AMINO TRANSFERASE 25 U/L (10-37); BILIRUBIN,TOTAL 0.5 MG/DL (0.1-1.0); BLOOD UREA NITROGEN 20 MG/DL (7-18); BUN/CREATININE RATIO 14.4 (10.0-20.0); CALCIUM 9.1 MG/DL (8.5-10.1); CHLORIDE 102 MMOL/L (99-107); CREATININE 1.39 MG/DL (0.40-0.90); GLUCOSE 106 MG/DL (70-104); SODIUM 137 MMOL/L (135-145); TOTAL CARBON DIOXIDE 26.6 MMOL/L (24-32); TOTAL PROTEIN 6.8 G/DL (6.4-8.2); eCRCL 28 ML/MIN; eGFR 37 ML/MIN
[2023-02-22 15:57] LABS: MAGNESIUM 1.9 MG/DL (1.5-2.4); PRO BRAIN NATRIURETIC PEPTIDE 208 PG/ML (0-450)
[2023-02-22] MEDS ORDERED: acetaminophen 325mg tablet PO PRN (23:40)
[2023-02-22] MEDS ORDERED: magnesium hydroxide 30ml (MOM) UD suspension PO PRN (23:40)
[2023-02-22] MEDS ORDERED: ondansetron/PF 4mg/2ml inj IV PRN (23:40)
[2023-02-22] MEDS ORDERED: mag hydrox/Alum hydrox/simeth 30ml oral suspension PO PRN (23:40)
[2023-02-23] VITALS (9 sets, daily range): BP systolic 104–136; BP diastolic 46–63; PULSE 44–60; RESP 13–20; TEMP 97.5–98.2; O2SAT 95–96
[2023-02-23] MEDS: docusate sod 100mg capsule PO SCH ×2 (07:52→19:56)
[2023-02-23] MEDS: EMPAGLIFLOZIN 10 MG TABLET PO SCH (10:53)
[2023-02-23] MEDS: atorvastatin 20mg tablet PO SCH (10:53)
[2023-02-23 12:11] LABS: EOSINOPHILS # (AUTO) 0.3 X10'3 (0-0.9); EOSINOPHILS % (AUTO) 5.8 % (0-6); WHITE BLOOD COUNT 5.7 X10'3 (4.5-11.0)
[2023-02-23 12:13] LABS: BASOPHILS # (AUTO) 0.1 X10'3 (0-0.2); BASOPHILS % (AUTO) 1.1 % (0-1); HEMATOCRIT 37.5 % (35.0-45.0); HEMOGLOBIN 12.7 g/dl (12.0-16.0); LYMPHOCYTES # (AUTO) 1.5 X10'3 (1.1-4.8); LYMPHOCYTES % (AUTO) 26.6 % (21-51); MEAN CORPUSCULAR HEMOGLOBIN 31.3 PG (27.0-31.0); MEAN CORPUSCULAR HGB CONC 33.9 g/dL (33.0-36.5); MEAN CORPUSCULAR VOLUME 92.5 FL (78-98); MEAN PLATELET VOLUME 8.8 FL (7.4-10.4); MONOCYTES # (AUTO) 0.7 X10'3 (0-0.9); MONOCYTES % (AUTO) 12.1 % (2-12); NEUTROPHILS # (AUTO) 3.1 X10'3 (1.8-7.7); NEUTROPHILS % (AUTO) 54.4 % (42-75); PLATELET COUNT 167 X10'3 (140-440); RED BLOOD COUNT 4.05 X10'6 (4.20-5.60)
[2023-02-23 12:14] LABS: ANION GAP 6 (8-16); BLOOD UREA NITROGEN 20 MG/DL (7-18); CALCIUM 8.9 MG/DL (8.5-10.1); CHLORIDE 104 MMOL/L (99-107); CREATININE 1.25 MG/DL (0.40-0.90); GLUCOSE 96 MG/DL (70-104); POTASSIUM 3.9 MMOL/L (3.5-5.1); SODIUM 136 MMOL/L (135-145); TOTAL CARBON DIOXIDE 26.5 MMOL/L (24-32); eCRCL 32 ML/MIN; eGFR 41 ML/MIN
[2023-02-23 13:08] LABS: BILIRUBIN,URINE NEGATIVE (Neg); CLARITY,URINE CLEAR (Clear); COLOR,URINE YELLOW (Yellow); GLUCOSE, URINE 500 mg/dl (Neg); KETONES,URINE NEGATIVE (Neg); LEUKOCYTE ESTERASE ,URINE NEGATIVE (Neg); NITRITES, URINE NEGATIVE (Neg); OCCULT BLOOD,URINE NEGATIVE (Neg); PROTEIN,URINE NEGATIVE (Neg); UROBILINOGEN,URINE 0.2 E.U/dL (0.2-1.0)
[2023-02-23 13:29] LABS: UA COLLECTION TYPE NON-SPECIFIED
[2023-02-23] MEDS: apixaban 5mg tablet PO SCH (19:56)
[2023-02-23] MEDS: amiodarone 200mg tablet PO SCH (19:56)
[2023-02-23] MEDS ORDERED: traZODone 50mg tablet PO SCH (21:00)
[2023-02-23] MEDS ORDERED: hydrOXYzine 25 MG tablet PO SCH (21:00)
[2023-02-24 02:00] VITALS: BP 95/45; PULSE 45; RESP 13; TEMP 97.8; O2SAT 96
[2023-02-24] MEDS ORDERED: pantoprazole 40mg Tablet.DR PO SCH (07:30)
[2023-02-24 08:00] VITALS: RESP 17; O2SAT 95
[2023-02-24] MEDS ORDERED: furosemide 20MG tablet PO SCH (08:00)
[2023-02-24] MEDS ORDERED: lisinopril 10 MG tablet PO SCH (08:00)
[2023-02-24] MEDS: EMPAGLIFLOZIN 10 MG TABLET PO SCH (08:19)
[2023-02-24] MEDS: atorvastatin 20mg tablet PO SCH (08:19)
[2023-02-24 08:20] VITALS: BP_SYST 104
[2023-02-24] MEDS: amiodarone 200mg tablet PO SCH (08:20)
[2023-02-24] MEDS: apixaban 5mg tablet PO SCH (08:24)
[2023-02-24] MEDS: docusate sod 100mg capsule PO SCH (08:25)
[2023-02-24] MEDS ORDERED: AMI200T PO (10:25)
[2023-02-24 11:00] VITALS: PULSE 60; RESP 20; TEMP 97.8; O2SAT 97
[2023-02-24 11:11] LABS: ALBUMIN 2.8 G/DL (3.4-5.0); ANION GAP 7 (8-16); BLOOD UREA NITROGEN 19 MG/DL (7-18); CALCIUM 9.1 MG/DL (8.5-10.1); CHLORIDE 104 MMOL/L (99-107); CREATININE 1.19 MG/DL (0.40-0.90); GLUCOSE 122 MG/DL (70-104); POTASSIUM 3.4 MMOL/L (3.5-5.1); SODIUM 139 MMOL/L (135-145); TOTAL CARBON DIOXIDE 27.8 MMOL/L (24-32); eCRCL 33 ML/MIN; eGFR 44 ML/MIN
[2023-02-24] MEDS ORDERED: metolazone 2.5mg tablet PO SCH (11:11)
[2023-02-24] MEDS ORDERED: metolazone 2.5mg tablet PO ONE (11:15)
[2023-02-26] MEDS ORDERED: HYDR25TA4 PO (19:26)
[2023-02-27] MEDS ORDERED: CEFD300C3 PO (11:06)
== END 2023-02-24 11:56 | disposition home or self-care (01) ==
LOC: ER 14:33 → ED HOLD 23:39 → PCU 3S 02-23 04:37
PROVIDERS: ADMIT Internal Medicine; ATTEND Family Medicine
DX: R00.1 Bradycardia, unspecified (principal); I11.0 Hypertensive heart disease with heart failure; I50.32 Chronic diastolic (congestive) heart failure; I48.0 Paroxysmal atrial fibrillation; E11.9 Type 2 diabetes mellitus without complications; E78.00 Pure hypercholesterolemia, unspecified; K76.0 Fatty (change of) liver, not elsewhere classified; K74.60 Unspecified cirrhosis of liver; I25.2 Old myocardial infarction; I25.10 Atherosclerotic heart disease of native coronary artery without angina pectoris; Z86.73 Personal history of transient ischemic attack (TIA), and cerebral infarction without residual deficits; Z79.899 Other long term (current) drug therapy; Z79.01 Long term (current) use of anticoagulants
CPT/HCPCS: 36415; 71045; 80048; 80053; 81003; 82948; 83735; 83880; 84484; 85025; 87081; 93005; 99284; G0378; Q0177; 81001; 87088

== ENCOUNTER 2023-04-26 10:38 | Emergency (ER) | payer MEDICARE, MEDICAID ==
[~2023-04-26] VITALS: Ht 162.6 cm; Wt 88.2 kg
[~2023-04-26 10:38] MED LIST changes: +AMIO200T27 PO; -CIPR-429 PO; -FURO20TA4 PO; +FURO40TA4 PO; -METO5TAB7 PO; +NITR0.4T48 SL; -POTA-366 PO; -SPIR25TA5 PO
[2023-04-26 13:17] VITALS: TEMP 98
[2023-04-26] MEDS ORDERED: acetaminophen w/codeine (30MG) #3 tablet PO ONE (14:45)
[2023-04-26 14:49] LABS: BASOPHILS % (AUTO) 0.6 % (0-1); EOSINOPHILS # (AUTO) 0.2 X10'3 (0-0.9); EOSINOPHILS % (AUTO) 2.7 % (0-6); HEMATOCRIT 40.4 % (35.0-45.0); HEMOGLOBIN 13.4 g/dl (12.0-16.0); LYMPHOCYTES # (AUTO) 1.4 X10'3 (1.1-4.8); LYMPHOCYTES % (AUTO) 17.7 % (21-51); MEAN CORPUSCULAR HEMOGLOBIN 31.5 PG (27.0-31.0); MEAN CORPUSCULAR HGB CONC 33.2 g/dL (33.0-36.5); MEAN CORPUSCULAR VOLUME 94.8 FL (78-98); MEAN PLATELET VOLUME 8.8 FL (7.4-10.4); MONOCYTES # (AUTO) 0.5 X10'3 (0-0.9); MONOCYTES % (AUTO) 6.4 % (2-12); NEUTROPHILS # (AUTO) 5.6 X10'3 (1.8-7.7); NEUTROPHILS % (AUTO) 72.6 % (42-75); PLATELET COUNT 177 X10'3 (140-440); RED BLOOD COUNT 4.27 X10'6 (4.20-5.60); RED CELL DISTRIBUTION WIDTH 14.7 % (11.5-14.5); WHITE BLOOD COUNT 7.7 X10'3 (4.5-11.0)
[2023-04-26 15:05] LABS: ALANINE AMINOTRANSFERASE 20 U/L (12-78); ALBUMIN 3.4 G/DL (3.4-5.0); ALKALINE PHOSPHATASE 78 IU/L (46-116); ANION GAP 8 (8-16); ASPARTATE AMINO TRANSFERASE 20 U/L (10-37); BILIRUBIN,TOTAL 0.4 MG/DL (0.1-1.0); BLOOD UREA NITROGEN 11 MG/DL (7-18); CALCIUM 8.8 MG/DL (8.5-10.1); CHLORIDE 106 MMOL/L (99-107); CREATININE 0.92 MG/DL (0.40-0.90); GLUCOSE 106 MG/DL (70-104); POTASSIUM 4.1 MMOL/L (3.5-5.1); SODIUM 140 MMOL/L (135-145); TOTAL CARBON DIOXIDE 25.8 MMOL/L (24-32); TOTAL PROTEIN 6.8 G/DL (6.4-8.2); eCRCL 42 ML/MIN; eGFR 59 ML/MIN
[2023-04-26 15:42] VITALS: BP 130/63; PULSE 54; RESP 15; O2SAT 98
[2023-04-26] MEDS ORDERED: ACET1TAB96 PO (16:20)
[2023-04-26] MEDS ORDERED: PRED20TA PO (16:20)
[2023-04-26] MEDS ORDERED: CEPH-585 PO (16:20)
== END 2023-04-26 16:38 | disposition home or self-care (01) ==
LOC: ER 10:39
DX: H70.92 Unspecified mastoiditis, left ear (principal); R51.9 Headache, unspecified; Z79.2 Long term (current) use of antibiotics; I11.0 Hypertensive heart disease with heart failure; I50.9 Heart failure, unspecified; E78.00 Pure hypercholesterolemia, unspecified; K21.9 Gastro-esophageal reflux disease without esophagitis; E11.9 Type 2 diabetes mellitus without complications; Z91.040 Latex allergy status; Z91.09 Other allergy status, other than to drugs and biological substances; Z79.899 Other long term (current) drug therapy
CPT/HCPCS: 36415; 70480; 80053; 84145; 85025; 99284

== ENCOUNTER 2023-11-17 18:41 | Emergency (ER) | payer MEDICARE, MEDICAID ==
[~2023-11-17] VITALS: Ht 162.6 cm; Wt 101.9 kg
[~2023-11-17 18:41] MED LIST changes: -AMIO200T27 PO
[2023-11-17 22:34] VITALS: BP 137/67; PULSE 62; RESP 18; TEMP 98.3; O2SAT 94
== END 2023-11-17 21:34 | disposition home or self-care (01) ==
LOC: ER 18:42
DX: S37.892A Contusion of other urinary and pelvic organ, initial encounter (principal); I48.91 Unspecified atrial fibrillation; I25.10 Atherosclerotic heart disease of native coronary artery without angina pectoris; I11.0 Hypertensive heart disease with heart failure; I50.9 Heart failure, unspecified; E78.00 Pure hypercholesterolemia, unspecified; I25.2 Old myocardial infarction; K21.9 Gastro-esophageal reflux disease without esophagitis; E11.9 Type 2 diabetes mellitus without complications; Z91.040 Latex allergy status; Z79.899 Other long term (current) drug therapy; Z60.2 Problems related to living alone; Z86.73 Personal history of transient ischemic attack (TIA), and cerebral infarction without residual deficits; Z98.890 Other specified postprocedural states; X58.XXXA Exposure to other specified factors, initial encounter; Y93.89 Activity, other specified; Y92.89 Other specified places as the place of occurrence of the external cause; Y99.8 Other external cause status
CPT/HCPCS: 72170; 82948; 99284

== ENCOUNTER 2023-11-24 12:58 | Outpatient (CLI) | payer MEDICARE, MEDICAID | END 2023-11-24 23:59 | disposition home or self-care (01) | LOC: RAD 12:58 | PROVIDERS: ATTEND Physician Assistant | DX: R13.10 Dysphagia, unspecified (principal) | CPT/HCPCS: 74230 ==

== ENCOUNTER 2024-01-05 16:29 | Inpatient (IN) | payer MEDICARE, MEDICAID ==
[~2024-01-05] VITALS: Ht 162.6 cm; Wt 91.5 kg
[2024-01-05 19:44] LABS: BASOPHILS % (AUTO) 0.5 % (0-1); EOSINOPHILS # (AUTO) 0.2 X10'3 (0-0.9); EOSINOPHILS % (AUTO) 2.8 % (0-6); HEMATOCRIT 42.5 % (35.0-45.0); LYMPHOCYTES # (AUTO) 2.1 X10'3 (1.1-4.8); LYMPHOCYTES % (AUTO) 27.5 % (21-51); MEAN CORPUSCULAR HEMOGLOBIN 31.5 PG (27.0-31.0); MEAN CORPUSCULAR VOLUME 95.5 FL (78-98); MEAN PLATELET VOLUME 8.3 FL (7.4-10.4); MONOCYTES # (AUTO) 0.8 X10'3 (0-0.9); MONOCYTES % (AUTO) 10.5 % (2-12); NEUTROPHILS # (AUTO) 4.4 X10'3 (1.8-7.7); NEUTROPHILS % (AUTO) 58.7 % (42-75); PLATELET COUNT 156 X10'3 (140-440); RED BLOOD COUNT 4.45 X10'6 (4.20-5.60); RED CELL DISTRIBUTION WIDTH 15.4 % (11.5-14.5); WHITE BLOOD COUNT 7.5 X10'3 (4.5-11.0)
[2024-01-05 19:59] LABS: ALANINE AMINOTRANSFERASE 17 U/L (12-78); ALBUMIN 3.4 G/DL (3.4-5.0); ALKALINE PHOSPHATASE 75 IU/L (46-116); ANION GAP 4 (8-16); ASPARTATE AMINO TRANSFERASE 19 U/L (10-37); BILIRUBIN,TOTAL 0.4 MG/DL (0.1-1.0); BLOOD UREA NITROGEN 14 MG/DL (7-18); BUN/CREATININE RATIO 12.6 (10.0-20.0); CALCIUM 8.8 MG/DL (8.5-10.1); CHLORIDE 106 MMOL/L (99-107); CREATININE 1.11 MG/DL (0.40-0.90); GLUCOSE 89 MG/DL (70-104); POTASSIUM 4.3 MMOL/L (3.5-5.1); PRO BRAIN NATRIURETIC PEPTIDE 173 PG/ML (0-450); SODIUM 139 MMOL/L (135-145); TOTAL CARBON DIOXIDE 28.6 MMOL/L (24-32); TOTAL PROTEIN 6.9 G/DL (6.4-8.2); eCRCL 35 ML/MIN; eGFR 47 ML/MIN
[2024-01-05 20:05] LABS: BILIRUBIN,URINE NEGATIVE (Neg); CLARITY,URINE SLIGHTLY CLOUDY (Clear); COLOR,URINE STRAW (Yellow); GLUCOSE, URINE >=1000 mg/dl (Neg); KETONES,URINE NEGATIVE (Neg); LEUKOCYTE ESTERASE ,URINE MODERATE (Neg); NITRITES, URINE NEGATIVE (Neg); OCCULT BLOOD,URINE NEGATIVE (Neg); PROTEIN,URINE NEGATIVE (Neg); UROBILINOGEN,URINE 0.2 E.U/dL (0.2-1.0)
[2024-01-05 20:21] LABS: UA COLLECTION TYPE CLN CATCH MIDSTREAM
[2024-01-05 20:27] LABS: BACTERIA,URINE FEW /HPF (Neg); RBC,URINE 0-2 /HPF (0-2)
[2024-01-05 20:28] LABS: SQUAMOUS EPITHELIAL CELL,UR FEW /LPF (FEW)
[2024-01-05] MEDS: CefTRIAXone/D5W-Rocephin 1gm 50 ML IV ONE (22:15)
[2024-01-05] MEDS: normal saline 1000ml 1,000 ML IV ONE (22:17)
[2024-01-05] MEDS ORDERED: ondansetron/PF 4mg/2ml inj IV PRN (23:50)
[2024-01-05] MEDS ORDERED: potassium Cl 20 mEq SR tablet PO PRN (23:50)
[2024-01-05] MEDS ORDERED: potassium Cl 40MEQ/1/2NS 520ml 520 ML IV PRN (23:50)
[2024-01-05] MEDS ORDERED: magnesium Cl slow-release 64mg tablet PO PRN (23:50)
[2024-01-05] MEDS ORDERED: magnesium sulf-water 2g/50mL 50 ML IV PRN (23:50)
[2024-01-05] MEDS ORDERED: acetaminophen 325mg tablet PO PRN (23:50)
[2024-01-05] MEDS ORDERED: morphine 2 MG/ML inj. syringe IV PRN (23:50)
[2024-01-05] MEDS ORDERED: magnesium sulf-water 4G/100mL 100 ML IV PRN (23:50)
[2024-01-05] MEDS ORDERED: mag hydrox/Alum hydrox/simeth 30ml oral suspension PO PRN (23:50)
[2024-01-06] MEDS ORDERED: dextrose 50%-water 50ml dispensing syringe IV PRN ×2 (00:05)
[2024-01-06] MEDS ORDERED: glucagon, human recombinant 1mg kit SUBCUT PRN (00:05)
[2024-01-06] MEDS ORDERED: DEXTROSE 15 GM of carb/4 tabs (each vial/BOTTLE has 4 tablets) PO PRN ×2 (00:05)
[2024-01-06 00:22] LABS: HEMOGLOBIN A1C 5.8 % (4.5-6.2)
[2024-01-06] MEDS: furosemide 10 MG/1 ML 10ml inj IV SCH (01:13)
[2024-01-06] MEDS ORDERED: hydrALAZINE 20mg/ml inj. IV PRN (01:40)
[2024-01-06] MEDS: morphine 2 MG/ML inj. syringe IV PRN (02:58)
[2024-01-06 04:21] LABS: BASOPHILS % (AUTO) 0.4 % (0-1); EOSINOPHILS # (AUTO) 0.4 X10'3 (0-0.9); EOSINOPHILS % (AUTO) 3.6 % (0-6); HEMATOCRIT 42.3 % (35.0-45.0); LYMPHOCYTES % (AUTO) 20.6 % (21-51); MEAN CORPUSCULAR HEMOGLOBIN 31.9 PG (27.0-31.0); MEAN CORPUSCULAR VOLUME 96.5 FL (78-98); MEAN PLATELET VOLUME 8.8 FL (7.4-10.4); MONOCYTES # (AUTO) 0.8 X10'3 (0-0.9); MONOCYTES % (AUTO) 8.6 % (2-12); NEUTROPHILS # (AUTO) 6.6 X10'3 (1.8-7.7); NEUTROPHILS % (AUTO) 66.8 % (42-75); PLATELET COUNT 173 X10'3 (140-440); RED BLOOD COUNT 4.39 X10'6 (4.20-5.60); RED CELL DISTRIBUTION WIDTH 15.7 % (11.5-14.5); WHITE BLOOD COUNT 9.8 X10'3 (4.5-11.0)
[2024-01-06 04:23] LABS: ALANINE AMINOTRANSFERASE 14 U/L (12-78); ALBUMIN/GLOBULIN RATIO 0.9 (1.1-1.5); ALKALINE PHOSPHATASE 67 IU/L (46-116); ANION GAP 5 (8-16); ASPARTATE AMINO TRANSFERASE 18 U/L (10-37); BILIRUBIN,TOTAL 0.5 MG/DL (0.1-1.0); BLOOD UREA NITROGEN 14 MG/DL (7-18); BUN/CREATININE RATIO 12.1 (10.0-20.0); CALCIUM 8.4 MG/DL (8.5-10.1); CHLORIDE 107 MMOL/L (99-107); CHOL/HDL RATIO 2.8 (0.00-4.99); CHOLESTEROL 147 MG/DL (0-200); CREATININE 1.16 MG/DL (0.40-0.90); GLUCOSE 118 MG/DL (70-104); HDL CHOLESTEROL 52 MG/DL (35-60); LDL CHOLESTEROL 74 MG/DL (50-100); MAGNESIUM 1.9 MG/DL (1.5-2.4); POTASSIUM 3.7 MMOL/L (3.5-5.1); SODIUM 141 MMOL/L (135-145); TOTAL CARBON DIOXIDE 29.4 MMOL/L (24-32); TOTAL PROTEIN 6.4 G/DL (6.4-8.2); TRIGLYCERIDES 108 MG/DL (20-135); eCRCL 33 ML/MIN; eGFR 45 ML/MIN
[2024-01-06 04:49] LABS: FREE T4 (FREE THYROXINE) 1.18 NG/DL (0.73-1.40); THYROID STIMULATING HORMONE 3.15 ulU/ml (0.34-4.50)
[2024-01-06] MEDS: INSULIN LISPRO 100 UNIT/ML INSULN.PEN MULTI-DOSE SQ SCH (07:00)
[2024-01-06] MEDS: K and/or MAG REPLACEMENT MC SCH (08:00)
[2024-01-06] MEDS: pantoprazole 40 MG vial IV SCH (08:24)
[2024-01-06] MEDS: heparin, porcine 5000 units/ml vial SQ SCH (08:24)
[2024-01-06] MEDS: docusate sod 100mg capsule PO SCH (08:24)
[2024-01-06] MEDS: acetaminophen 325mg tablet PO PRN (11:29)
[2024-01-06 20:00] VITALS: RESP 15; O2SAT 96
[2024-01-06] MEDS: insulin glargine (Lantus) pen - multi-dose SQ SCH (21:00)
[2024-01-06] MEDS: carVEDilol 3.125mg tablet PO SCH (21:34)
[2024-01-06] MEDS: apixaban 5mg tablet PO SCH (21:37)
[2024-01-06] MEDS: traZODone 50mg tablet PO SCH (21:38)
[2024-01-06] MEDS: hydrOXYzine 25 MG tablet PO SCH (21:38)
[2024-01-07] VITALS (7 sets, daily range): BP systolic 100–158; BP diastolic 49–70; PULSE 60–78; RESP 13–20; TEMP 97.5–98.7; O2SAT 94–98
[2024-01-07] MEDS: CefTRIAXone/D5W-Rocephin 1gm 50 ML IV SCH (00:45)
[2024-01-07 06:42] LABS: BASOPHILS # (AUTO) 0.1 X10'3 (0-0.2); BASOPHILS % (AUTO) 0.9 % (0-1); EOSINOPHILS # (AUTO) 0.4 X10'3 (0-0.9); EOSINOPHILS % (AUTO) 4.9 % (0-6); HEMATOCRIT 39.5 % (35.0-45.0); HEMOGLOBIN 13.1 g/dl (12.0-16.0); LYMPHOCYTES # (AUTO) 1.7 X10'3 (1.1-4.8); LYMPHOCYTES % (AUTO) 24.3 % (21-51); MEAN CORPUSCULAR HGB CONC 33.1 g/dL (33.0-36.5); MEAN CORPUSCULAR VOLUME 93.7 FL (78-98); MEAN PLATELET VOLUME 8.9 FL (7.4-10.4); MONOCYTES # (AUTO) 0.7 X10'3 (0-0.9); MONOCYTES % (AUTO) 10.2 % (2-12); NEUTROPHILS # (AUTO) 4.3 X10'3 (1.8-7.7); NEUTROPHILS % (AUTO) 59.7 % (42-75); PLATELET COUNT 164 X10'3 (140-440); RED BLOOD COUNT 4.22 X10'6 (4.20-5.60); RED CELL DISTRIBUTION WIDTH 15.3 % (11.5-14.5); WHITE BLOOD COUNT 7.2 X10'3 (4.5-11.0)
[2024-01-07 07:22] LABS: ALANINE AMINOTRANSFERASE 12 U/L (12-78); ALBUMIN 2.9 G/DL (3.4-5.0); ALBUMIN/GLOBULIN RATIO 0.9 (1.1-1.5); ALKALINE PHOSPHATASE 56 IU/L (46-116); ANION GAP 6 (8-16); ASPARTATE AMINO TRANSFERASE 20 U/L (10-37); BILIRUBIN,TOTAL 0.5 MG/DL (0.1-1.0); BLOOD UREA NITROGEN 16 MG/DL (7-18); BUN/CREATININE RATIO 14.8 (10.0-20.0); CALCIUM 8.2 MG/DL (8.5-10.1); CHLORIDE 104 MMOL/L (99-107); CREATININE 1.08 MG/DL (0.40-0.90); GLUCOSE 105 MG/DL (70-104); MAGNESIUM 1.9 MG/DL (1.5-2.4); POTASSIUM 3.3 MMOL/L (3.5-5.1); SODIUM 141 MMOL/L (135-145); TOTAL CARBON DIOXIDE 30.8 MMOL/L (24-32); TOTAL PROTEIN 6.2 G/DL (6.4-8.2); eCRCL 36 ML/MIN; eGFR 49 ML/MIN
[2024-01-07] MEDS: potassium Cl 20 mEq SR tablet PO PRN (08:37)
[2024-01-07] MEDS: lisinopril 10 MG tablet PO SCH (08:38)
[2024-01-07] MEDS: atorvastatin 20mg tablet PO SCH (08:38)
[2024-01-07] MEDS: EMPAGLIFLOZIN 10 MG TABLET PO SCH (08:39)
[2024-01-07] MEDS: fludrocortisone acetate 0.1mg tablet PO SCH (08:39)
[2024-01-07] MEDS: normal saline 250ml IV soln 250 ML IV ONE (12:55)
[2024-01-07] MEDS ORDERED: meclizine 12.5mg tablet PO PRN (14:00)
[2024-01-07] MEDS ORDERED: furosemide 20 MG/2 ML vial IV SCH (20:00)
[2024-01-08] VITALS: BP 111/53; PULSE 64; RESP 16; TEMP 99.9; O2SAT 93
[2024-01-08 06:49] LABS: ALANINE AMINOTRANSFERASE 24 U/L (12-78); ALBUMIN 2.7 G/DL (3.4-5.0); ALBUMIN/GLOBULIN RATIO 0.8 (1.1-1.5); ALKALINE PHOSPHATASE 51 IU/L (46-116); ANION GAP 3 (8-16); ASPARTATE AMINO TRANSFERASE 20 U/L (10-37); BILIRUBIN,TOTAL 0.4 MG/DL (0.1-1.0); BLOOD UREA NITROGEN 22 MG/DL (7-18); BUN/CREATININE RATIO 18.6 (10.0-20.0); CALCIUM 8.6 MG/DL (8.5-10.1); CHLORIDE 106 MMOL/L (99-107); CREATININE 1.18 MG/DL (0.40-0.90); GLUCOSE 104 MG/DL (70-104); MAGNESIUM 2.2 MG/DL (1.5-2.4); POTASSIUM 3.8 MMOL/L (3.5-5.1); SODIUM 140 MMOL/L (135-145); TOTAL CARBON DIOXIDE 30.8 MMOL/L (24-32); TOTAL PROTEIN 5.9 G/DL (6.4-8.2); eCRCL 33 ML/MIN; eGFR 44 ML/MIN
[2024-01-08 07:00] VITALS: BP 111/36; PULSE 58; RESP 16; TEMP 97; O2SAT 96
[2024-01-08 07:13] LABS: BASOPHILS # (AUTO) 0.1 X10'3 (0-0.2); BASOPHILS % (AUTO) 0.9 % (0-1); EOSINOPHILS # (AUTO) 0.4 X10'3 (0-0.9); EOSINOPHILS % (AUTO) 6.6 % (0-6); HEMATOCRIT 39.3 % (35.0-45.0); LYMPHOCYTES % (AUTO) 30.1 % (21-51); MEAN CORPUSCULAR HEMOGLOBIN 31.4 PG (27.0-31.0); MEAN CORPUSCULAR HGB CONC 33.1 g/dL (33.0-36.5); MEAN CORPUSCULAR VOLUME 95.1 FL (78-98); MEAN PLATELET VOLUME 8.5 FL (7.4-10.4); MONOCYTES # (AUTO) 0.8 X10'3 (0-0.9); MONOCYTES % (AUTO) 12.2 % (2-12); NEUTROPHILS # (AUTO) 3.3 X10'3 (1.8-7.7); NEUTROPHILS % (AUTO) 50.2 % (42-75); PLATELET COUNT 154 X10'3 (140-440); RED BLOOD COUNT 4.13 X10'6 (4.20-5.60); RED CELL DISTRIBUTION WIDTH 15.3 % (11.5-14.5); WHITE BLOOD COUNT 6.6 X10'3 (4.5-11.0)
[2024-01-08] MEDS: pantoprazole 40mg Tablet.DR PO SCH (07:56)
[2024-01-08 09:18] VITALS: BP_SYST 117; BP_SYST 125; BP_SYST 132; BP_DIAS 45; BP_DIAS 60; BP_DIAS 63; PULSE 64; PULSE 71; PULSE 73
[2024-01-08] MEDS: magnesium hydroxide 30ml (MOM) UD suspension PO PRN (09:29)
[2024-01-08 11:00] VITALS: BP 108/49; PULSE 66; RESP 19; TEMP 97.8; O2SAT 95
[2024-01-08 15:00] VITALS: BP 126/58; PULSE 64; RESP 18; TEMP 97.8; O2SAT 95
== END 2024-01-08 18:10 | DRG 291 ==
LOC: ER 16:30 → ED HOLD 23:57 → PCU 3S 01-06 17:10
PROVIDERS: ADMIT Internal Medicine Pulmonary Disease; ATTEND Internal Medicine
PROC: BW21ZZZ Computerized Tomography (CT Scan) of Abdomen and Pelvis (ICD-10-PCS; principal; 2024-01-06)
DX: I11.0 Hypertensive heart disease with heart failure (principal); I50.33 Acute on chronic diastolic (congestive) heart failure; N39.0 Urinary tract infection, site not specified; E11.9 Type 2 diabetes mellitus without complications; E86.0 Dehydration; I25.10 Atherosclerotic heart disease of native coronary artery without angina pectoris; I25.2 Old myocardial infarction; I48.91 Unspecified atrial fibrillation; E78.5 Hyperlipidemia, unspecified; Z66 Do not resuscitate; K74.60 Unspecified cirrhosis of liver; K21.9 Gastro-esophageal reflux disease without esophagitis; Z91.040 Latex allergy status; Z91.048 Other nonmedicinal substance allergy status; Z86.73 Personal history of transient ischemic attack (TIA), and cerebral infarction without residual deficits; R53.1 Weakness
CPT/HCPCS: 36415; 70450; 70480; 71045; 74176; 80053; 80061; 81001; 82948; 83036; 83605; 83735; 83880; 84145; 84439; 84443; 84484; 85025; 87040; 87081; 87088; 93005; 93306; 93970; 96361; 96365; 97116; 97161; 97530; 99285; A6446; A6449; A6455; C1758; G0378; J0696; J1644; J1815; J1940; J2270; J2470; J7030; J7040; Q0177

== ENCOUNTER 2024-04-19 13:04 | Emergency (ER) | payer MEDICARE, MEDICAID ==
[~2024-04-19] VITALS: Ht 162.6 cm; Wt 94.7 kg
[2024-04-19 13:13] VITALS: TEMP 98.2
[2024-04-19 16:03] VITALS: BP 163/78; PULSE 65; RESP 16; O2SAT 97
== END 2024-04-19 16:55 | disposition home or self-care (01) ==
LOC: ER 13:05
DX: I11.0 Hypertensive heart disease with heart failure (principal); I50.9 Heart failure, unspecified; I25.10 Atherosclerotic heart disease of native coronary artery without angina pectoris; E78.00 Pure hypercholesterolemia, unspecified; I48.91 Unspecified atrial fibrillation; E11.9 Type 2 diabetes mellitus without complications; K21.9 Gastro-esophageal reflux disease without esophagitis; Z86.73 Personal history of transient ischemic attack (TIA), and cerebral infarction without residual deficits; Z91.040 Latex allergy status; Z88.8 Allergy status to other drugs, medicaments and biological substances; Z90.89 Acquired absence of other organs
CPT/HCPCS: 99281

== ENCOUNTER 2024-05-05 19:45 | Emergency (ER) | payer MEDICARE, MEDICAID ==
[~2024-05-05] VITALS: Ht 162.6 cm; Wt 99.0 kg
[2024-05-05] MEDS ORDERED: FURO20TA4 PO (20:11)
[2024-05-05] MEDS ORDERED: ALBUTEROL (20:11)
[2024-05-05] MEDS ORDERED: CARV3.123 PO (20:11)
[2024-05-05] MEDS ORDERED: POTA10CA95 PO (20:11)
[2024-05-05 20:19] LABS: BASOPHILS # (AUTO) 0.1 X10'3 (0-0.2); BASOPHILS % (AUTO) 0.7 % (0-1); EOSINOPHILS # (AUTO) 0.9 X10'3 (0-0.9); EOSINOPHILS % (AUTO) 12.4 % (0-6); HEMATOCRIT 37.8 % (35.0-45.0); HEMOGLOBIN 12.6 g/dl (12.0-16.0); LYMPHOCYTES % (AUTO) 27.6 % (21-51); MEAN CORPUSCULAR HEMOGLOBIN 31.2 PG (27.0-31.0); MEAN CORPUSCULAR HGB CONC 33.4 g/dL (33.0-36.5); MEAN CORPUSCULAR VOLUME 93.3 FL (78-98); MONOCYTES # (AUTO) 0.7 X10'3 (0-0.9); MONOCYTES % (AUTO) 9.8 % (2-12); NEUTROPHILS # (AUTO) 3.6 X10'3 (1.8-7.7); NEUTROPHILS % (AUTO) 49.5 % (42-75); PLATELET COUNT 186 X10'3 (140-440); RED BLOOD COUNT 4.05 X10'6 (4.20-5.60); RED CELL DISTRIBUTION WIDTH 14.8 % (11.5-14.5); WHITE BLOOD COUNT 7.3 X10'3 (4.5-11.0)
[2024-05-05 20:33] LABS: ALANINE AMINOTRANSFERASE 24 U/L (12-78); ALBUMIN/GLOBULIN RATIO 0.8 (1.1-1.5); ALKALINE PHOSPHATASE 84 IU/L (46-116); ANION GAP 7 (8-16); ASPARTATE AMINO TRANSFERASE 20 U/L (10-37); BILIRUBIN,TOTAL 0.3 MG/DL (0.1-1.0); BLOOD UREA NITROGEN 12 MG/DL (7-18); BUN/CREATININE RATIO 12.5 (10.0-20.0); CALCIUM 8.4 MG/DL (8.5-10.1); CHLORIDE 108 MMOL/L (99-107); CREATININE 0.96 MG/DL (0.40-0.90); GLUCOSE 139 MG/DL (70-104); POTASSIUM 3.9 MMOL/L (3.5-5.1); SODIUM 143 MMOL/L (135-145); TOTAL PROTEIN 6.7 G/DL (6.4-8.2); eCRCL 40 ML/MIN; eGFR 56 ML/MIN
[2024-05-05 20:43] LABS: PRO BRAIN NATRIURETIC PEPTIDE 132 PG/ML (0-450)
[2024-05-05 23:07] VITALS: BP 163/61; PULSE 62; RESP 18; TEMP 98.2; O2SAT 97
== END 2024-05-06 00:02 | disposition home or self-care (01) ==
LOC: ER 19:46
DX: R07.89 Other chest pain (principal); E11.9 Type 2 diabetes mellitus without complications; E78.00 Pure hypercholesterolemia, unspecified; I25.10 Atherosclerotic heart disease of native coronary artery without angina pectoris; I25.2 Old myocardial infarction; I48.91 Unspecified atrial fibrillation; I11.0 Hypertensive heart disease with heart failure; I50.9 Heart failure, unspecified; K21.9 Gastro-esophageal reflux disease without esophagitis; Z86.73 Personal history of transient ischemic attack (TIA), and cerebral infarction without residual deficits; Z90.89 Acquired absence of other organs; Z91.040 Latex allergy status; Z91.048 Other nonmedicinal substance allergy status; Z79.899 Other long term (current) drug therapy; Z60.2 Problems related to living alone
CPT/HCPCS: 36415; 71045; 80053; 83880; 84484; 85025; 93005; 99285

== ENCOUNTER 2025-01-28 12:10 | Day surgery (SDC) | payer MEDICARE, MEDICAID ==
[2025-01-24 13:04] LABS: APTT 22 SECONDS (22-32); INR 1.1 INR
[2025-01-24 13:07] LABS: CHOL/HDL RATIO 2.9 (0.00-4.99); CREATININE 0.88 MG/DL (0.40-0.90); LDL CHOLESTEROL 60 MG/DL (50-100); TOTAL CARBON DIOXIDE 27.6 MMOL/L (24-32); eGFR 62 ML/MIN
[~2025-01-28] VITALS: Ht 162.6 cm; Wt 104.0 kg
[2025-01-28] VITALS (8 sets, daily range): BP systolic 117–149; BP diastolic 57–69; PULSE 58–65; RESP 16–18; TEMP 97.9; O2SAT 92–98
[~2025-01-28 12:10] MED LIST changes: +ALBUTEROL; +CARV6.253 PO; -EMPA10TA PO; +FURO20TA4 PO; -FURO40TA4 PO; +MECL-226 PO
[2025-01-28] MEDS ORDERED: LISI20TA28 PO (12:40)
[2025-01-28] MEDS ORDERED: PRED20TA PO (12:41)
[2025-01-28] MEDS ORDERED: METO-395 PO (12:41)
--- NOTE | 2025-01-28 12:57 | ELECTROCARDIOGRAPH REPORT ---
[facility] Test Date: 2025-01-28 Test Time: 13:52:19 Pat Name: ELIZABETH ENGLE Department: [facility] Patient ID: [facility]-[id number] Room: Gender: F Emergency Communications Dispatcher: : 1945 Requested By: PHYLLIS LOAIZA Order Number: [id number] Reading MD: Dr. KASSIE Villegas Measurements Intervals [place] Rate: 69 P: 42 HI: 162 QRS: 16 QRSD: 97 T: 53 QT: 401 QTc: 430 Interpretive Statements Sinus rhythm Electronically Signed On 01-28-2025 13:22:[address] KASSIE Villegas Please click the below link to view image of tracing.
[2025-01-28] MEDS ORDERED: heparin 1,000unit/ml 10ml vial 10 ML ONE (14:39)
[2025-01-28] MEDS ORDERED: LIDOcaine 1% (10mg/ml) 2ml vial ONE (14:39)
[2025-01-28] MEDS ORDERED: verapamil 2.5 mg/ml inj IV ONE (14:39)
[2025-01-28] MEDS ORDERED: midazolam 1 mg/ML 2ml injection ONE (14:39)
[2025-01-28] MEDS ORDERED: fentaNYL/PF 50MCG/1 ML 2ML syringe ONE (14:39)
[2025-01-28] MEDS ORDERED: nitroGLYCERIN 500mcg/5mL D5W 5 ML IV ONE (14:41)
[2025-01-28 14:54] LABS: MEAN PLATELET VOLUME 8.8 FL (7.4-10.4); RED CELL DISTRIBUTION WIDTH 14.6 % (11.5-14.5)
--- NOTE | 2025-02-16 08:01 | CARDIOLOGY REPORT ---
DATE OF SERVICE: 01/28/2025 DICTATING PHYSICIAN: Apple Medina MD CARDIAC CATHETERIZATION REPORT DATE OF STUDY: 01/28/2025. PROCEDURES: * Left heart catheterization. * Selective coronary angiography. * Left ventriculography. * Conscious sedation monitoring time for 15 minutes. INDICATION: Chest pain. PHYSICIAN: Apple Medina MD PROCEDURE: After informed consent was obtained, the patient was brought to the cardiac mechanical shop laborer in a fasting state where the patient was prepped and draped in the usual sterile manner. After adequate anesthesia was obtained using 1% lidocaine to the right wrist, a 5-[place] sheath was inserted into the right radial artery using a modified Seldinger technique. Thereafter, using a cocktail of heparin, verapamil and nitroglycerin, the cocktail was given via the sheath in the radial artery to prevent coronary vasospasm and for anticoagulation. Next, using an Ultimate-2 catheter, the catheter was advanced under fluoroscopy guidance into the ascending aorta. The catheter was then manipulated to engage the left coronary system and coronary angiography of the left system was obtained. Next, the catheter was disengaged and manipulated to engage the right coronary artery and selective coronary angiography of the right coronary artery was obtained. Thereafter, the catheter was disengaged from the right coronary artery and manipulated to advance into the left ventricle where left ventriculography in the SUAREZ position was obtained. The catheter was then removed. Hemostasis was obtained using the radial band. HEMODYNAMICS: For the patient's hemodynamics, please refer to the event log. Left ventricular end diastolic pressure is 21 mmHg. FINDINGS: The left main coronary artery is a normal caliber vessel with mild luminal irregularities. The left anterior descending coronary artery is a medium caliber tortuous vessel. There appears to be a 40% stenosis in the proximal LAD at the takeoff of the diagonal branch of the LAD. The circumflex coronary arteries are normal caliber vessel with mild luminal irregularities. The right coronary artery is also a normal caliber vessel with mild luminal irregularities. Left ventricular end diastolic pressure is 21 mmHg. IMPRESSION: * 40% stenosis of the proximal LAD at the takeoff of the diagonal branch of the LAD. * Mild luminal irregularities of the circumflex and RCA. * Left ventricular end diastolic pressure is elevated at 21 mmHg. Apple Medina MD TID: [id number] RECEIPT: [id number] MK/MOH
== END 2025-01-28 18:00 | disposition home or self-care (01) ==
LOC: SSTAY O 12:10
PROVIDERS: ATTEND Student in an Organized Health Care Education/Training Program
DX: R07.9 Chest pain, unspecified (principal); I25.118 Atherosclerotic heart disease of native coronary artery with other forms of angina pectoris; I11.0 Hypertensive heart disease with heart failure; I50.9 Heart failure, unspecified; E11.9 Type 2 diabetes mellitus without complications; E78.00 Pure hypercholesterolemia, unspecified; I48.91 Unspecified atrial fibrillation; Z86.73 Personal history of transient ischemic attack (TIA), and cerebral infarction without residual deficits; Z79.899 Other long term (current) drug therapy; Z79.01 Long term (current) use of anticoagulants; Z91.040 Latex allergy status; Z91.041 Radiographic dye allergy status
CPT/HCPCS: 36415; 80048; 80061; 82948; 85025; 85610; 85730; 93005; 93458; 99152; A6258; C1894; J1644; J2003; J2250; J3010; J3490; J7030; Q0163; Q9967; Z7610